=== PATIENT | female | born 1975 | race African-American/Black ===

== ENCOUNTER 2021-11-12 20:07 | Emergency (ER) | payer BC, OTHER, SELFPAY ==
[2021-11-12] MEDS ORDERED: Oxymetazoline HCl 0.05% ( 15 ML ) ONE (20:45)
== END 2021-11-12 20:48 | disposition home or self-care (01) ==
LOC: CSHERS 20:07
DX: R04.0 Epistaxis (principal)
CPT/HCPCS: 99283